=== PATIENT | female | born 2000 | race Hispanic/Latino ===

== ENCOUNTER 2021-01-23 10:21 | Emergency (ER) | payer BC ==
[2021-01-23] MEDS ORDERED: Famotidine 20 MG TAB ONE (10:43)
[2021-01-23] MEDS ORDERED: predniSONE 20 MG TAB ONE (10:43)
[2021-01-23] MEDS ORDERED: diphenhydrAMINE 50 MG CAP ONE (10:43)
== END 2021-01-23 11:59 | disposition home or self-care (01) ==
LOC: ERS 10:21
DX: T78.1XXA Other adverse food reactions, not elsewhere classified, initial encounter (principal)
CPT/HCPCS: 99283; J7512